=== PATIENT | female | born 1955 | race Caucasian/White ===

== ENCOUNTER 2018-10-01 19:04 | Emergency (ER) | payer OTHER ==
[~2018-10-01 19:04] MED LIST: ASCO-244 PO; CALC-852 PO; GLUC-198 PO; LUTE20TA PO; MULT-1335 PO; OMEG500C5 PO
--- NOTE | 2018-10-01 19:51 | ER Report ---
History and Physical Time Seen By MD: 19:40 Hx. of Stated Complaint: PT REPORTS FACIAL DROOP AND SLURRED SPEECH AT HOME. NIH NEGATIVE IN TRIAGE, VAN NEGATIVE, VSS HPI/ROS CHIEF COMPLAINT:? TIA HISTORY OF PRESENT ILLNESS: 63-year-old female with a history of sick sinus syndrome followed by cardiology. She is asymptomatic and has not required a pacemaker as of yet. Her resting heart rate can be as low as 35. Tonight while doing the dishes after dinner she had right facial droop and trouble speaking for approximately a minute or 2, her brought her to the emergency department. She was having trouble ambulating at home as well as coming into the ER. Her facial droop is resolved. Her speech is returned to normal. Patient is asymptomatic. She denies headache, nausea, vomiting, visual changes, chest pain. She does take medication for hyperlipidemia. REVIEW OF SYSTEMS: Respiratory: No cough, no dyspnea. Cardiovascular: No chest pain, no palpitations. Gastrointestinal: No vomiting, no abdominal pain. Musculoskeletal: No back pain. Allergies: Coded Allergies: codeine (Verified Adverse Reaction, Unknown, NAUSEA, 10/01/18) Home Meds Reported Medications Lutein (LUTEIN) 20 Mg Tablet, 20 MG PO QDAY 12/26/12 [place]-3 Fatty Acids (FISH OIL) 500 Mg Capsule.dr, 500 MG PO QDAY 12/26/12 Ascorbic Acid (VITAMIN C) 1,000 Mg Tablet.er, 1000 MG PO QDAY 12/26/12 Multivitamin With Minerals (MULTIPLE VITAMIN) 1 Each Tablet, 1 EACH PO QDAY 12/26/12 Glucosa Schmidt 2KCL/Chondroitin Schmidt (GLUCOSAMINE & CHONDROITIN CAP) 1 Each Capsule, 1 EACH PO QDAY, CAPSULE 12/26/12 Calcium Carbonate/Vitamin D3 (CALCIUM + VITAMIN D TABLET) 1 Each Tablet, 1 EACH PO QDAY 12/26/12 Past Medical/Surgical History Hyperlipidemia, sick sinus syndrome followed by cardiology, Dr. Onofre Reviewed Nurses Notes: Yes Old Medical Records Reviewed: Yes Constitutional Vital Sign - Last 24 Hours 10/01/18 10/01/18 10/01/18 10/01/18 19:05 19:15 19:30 19:45 Temp 98.3 Pulse 38 42 42 Resp 14 B/P (MAP) 149/70 126/70 (88) Pulse Ox 96 95 88 96 O2 Delivery Room Air 810/01/18 10/01/18 10/01/18 20:00 20:15 20:30 20:45 Pulse 44 32 34 B/P (MAP) 148/74 (98) 127/85 (99) Pulse Ox 98 97 95 10/01/18 10/01/18 21:00 21:12 B/P (MAP) 136/76 (96) 109/80 (90) Pulse Ox 98 Physical Exam General Appearance: The patient is alert, has no immediate need for airway protection and no current signs of toxicity. Vital signs stable, afebrile, pulse ox normal HEENT: Pupils equal and round no injection. PERRLA, EOMI, oropharynx without redness or exudate Respiratory: Chest is non tender, lungs are clear to auscultation. Cardiac: Irregular rate and rhythm, extremely bradycardic, no murmur[ ] Gastrointestinal: Abdomen is soft and non tender, no masses, bowel sounds normal. Musculoskeletal: Neck: Neck is supple and non tender. No bruits Extremities have full range of motion and are non tender. Skin: No rashes or lesions. Neuro: Alert and oriented 3, cranial nerves II through XII intact motor 5/5 shoer, sensory intact to light touch 4, cerebellum grossly intact DIFFERENTIAL DIAGNOSIS: After history and physical exam differential diagnosis was considered for weakness including but not limited to electrolyte abnormality, depression, anxiety, CVA, spinal cord abnormality, and infectious causes. Medical Decision Making Data Points Result Diagram: 10/01/18200910/01/182009 Laboratory Hematology Test 10/01/18 20:10 White Blood Count 7.2 k/uL (4.5-11.0) Red Blood Count 4.73 M/uL (4.17-5.56) Hemoglobin 15.2 g/dL (12.0-16.0) Hematocrit 44.1 % (34.0-47.0) Mean Corpuscular Volume 93.2 fL (80.0-96.0) Mean Corpuscular Hemoglobin 32.1 pg (26.0-33.0) Mean Corpuscular Hemoglobin Concent 34.4 g/dL (32.0-36.0) Red Cell Distribution Width 14.6 % (11.5-14.5) H Platelet Count 196 K/uL (150-450) Mean Platelet Volume 9.0 fL (7.2-11.1) Neutrophils (%) (Auto) 51.2 % (39.4-72.5) Lymphocytes (%) (Auto) 39.1 % (17.6-49.6) Monocytes (%) (Auto) 6.1 % (4.1-12.4) Eosinophils (%) (Auto) 2.5 % (0.4-6.7) Basophils (%) (Auto) 1.1 % (0.3-1.4) Nucleated RBC Relative Count (auto) 0.1 /100WBC Neutrophils # (Auto) 3.7 K/uL (2.0-7.4) Lymphocytes # (Auto) 2.8 K/uL (1.3-3.6) Monocytes # (Auto) 0.4 K/uL (0.3-1.0) Eosinophils # (Auto) 0.2 K/uL (0.0-0.5) Basophils # (Auto) 0.1 K/uL (0.0-0.1) Nucleated RBC Absolute Count (auto) 0.00 K/uL Chemistry Test 10/01/18 20:10 10/01/18 21:12 Sodium Level 139 mmol/L (137-145) Potassium Level 3.9 mmol/L (3.5-5.0) Chloride Level 102 mmol/L (98-107) Carbon Dioxide Level 27 mmol/L (22-31) Blood Urea Nitrogen 17 mg/dl (7-18) Creatinine 0.80 mg/dl (0.52-1.04) Glomerular Filtration Rate Calc > 60.0 Random Glucose 59 mg/dl (75-110) Calcium Level 9.7 mg/dl (8.4-10.2) Total Bilirubin 1.5 mg/dl (0.2-1.3) Aspartate Amino Transf (AST/SGOT) 46 U/L (0-35) Alanine Aminotransferase (ALT/SGPT) 46 U/L (0-56) Alkaline Phosphatase 57 U/L (0-126) Troponin I < 0.012 ng/ml B-Type Natriuretic Peptide 127 pg/ml (0-100) Total Protein 7.5 g/dl (6.3-8.2) Albumin 4.7 g/dl (3.5-5.0) Whole Blood Glucose 104 mg/DL (75-110) Coagulation Test 10/01/18 20:10 Prothrombin Time 13.0 seconds (12.0-14.4) Prothromb Time International Ratio 0.98 Activated Partial Thromboplast Time 28 seconds (23-35) Urinalysis Test 10/01/18 20:10 Urine Color Yellow Urine Clarity Clear Urine pH 6.0 pH (4.8-9.5) Urine Specific [place] 1.008 Urine Protein Negative mg/dL (NEGATIVE) Urine Glucose (UA) Negative mg/dL (NEGATIVE) Urine Ketones Negative mg/dL (NEGATIVE) Urine Blood Negative (NEGATIVE) Urine Nitrite Negative (NEGATIVE) Urine Bilirubin Negative (NEGATIVE) Urine Urobilinogen Negative mg/dL (0.2-1.9) Urine Leukocyte Esterase Small (NEGATIVE) Urine RBC 1 /HPF (0-2/HPF) Urine WBC 2 /HPF (0-5/HPF) Urine Squamous Epithelial Cells Many /LPF (</=FEW) Urine Bacteria Negative /HPF (NONE-FEW) Urine Mucus None /HPF (NONE-FEW) EKG/Imaging EKG Interpretation 12 lead EKG: Rhythm: Sinus rhythm with a rate of 46 bpm,? Sick sinus syndrome. There appeared to be junctional escape beats [place]: Left axis deviation QRS: normal ST segments:, No evidence of ischemia,, comparison to old altered monitor 01/2015 Imaging Results: CT scan of the head without contrast was obtained. The results of the study are no acute findings. The study was read by the radiologist. I viewed the images myself on the PACS system. ED Course/Re-evaluation Clinical Indication for ER IV: IV Access ED Course Patient was admitted to an examination room. H&P was done. The differential diagnoses was considered. On clinical examination, patient is a nonfocal neurologic examination. Her INH stroke scale is negative. Her symptoms have resolved spontaneously. Diagnostic evaluation is undertaken. Patient's EKG shows sick sinus syndrome with junctional bradycardia. It's likely unchanged from previous. Scan of her head is unremarkable. Her diagnostic studies are all unremarkable. She is a mild elevation of her BNP to 127. She is advised to start taking a baby aspirin daily. She is advised to follow-up with primary care for outpatient ultrasound of her carotids and echocardiogram. She also is advised to follow-up with her compensation/benefits specialist. Her irregular rhythm, a be putting her at risk for thromboembolic disease. Patient was noted to have hypoglycemia with a blood sugar of 59. After drinking cranberry juice. Her repeat fingerstick glucose is 104. Patient reports feeling better. Decision to Disposition Date: Oct 01, 2018 Decision to Disposition Time: 20:34 Depart Departure Latest Vital Signs Vital Signs Date Time Temp Pulse Resp B/P (MAP) Pulse Ox O2 Delivery O2 Flow Rate FiO2 10/01/18 21:12 109/80 (90) 10/01/18 21:00 98 10/01/18 20:45 34 10/01/18 19:05 98.3 14 Room Air Impression: Primary Impression: Hypoglycemia Additional Impressions: Hyperlipidemia Sick sinus syndrome TIA (transient ischemic attack) Condition: Improved Disposition: HOME OR SELF-CARE Referrals: TULIO CORRAL MD (PCP) Patient Instructions: Non-diabetic Hypoglycemia (ED), Transient Ischemic Attack (ED) Additional Instructions: Take an aspirin 81 mg per day Your blood glucose returned at 59. On your blood draw normal. Blood glucose should be 70-110 Follow-up with your primary care doctor. He will need an ultrasound of urine. Carotid arteries and your heart You likely will need follow-up with your compensation/benefits specialist for consideration of a pacemaker to provide you with a steady rhythm Problem Qualifiers Additional Impressions: Hyperlipidemia Hyperlipidemia type: unspecified Qualified Codes: E78.5 - Hyperlipidemia, unspecified HALEY LOPEZ DO Oct 01, 2018 19:51
--- NOTE | 2018-10-01 20:22 | EKG ---
FACILITY: [facility] - [place] PATIENT NAME: LISETH CARRINGTON : [id number] MR: [id number] V: [id number] EXAM DATE: ORDERING PHYSICIAN: HALEY LOPEZ TECHNOLOGIST: JAMAAL Test Reason : BRADYCARDIA TIA Blood Pressure : / mmHG Vent. Rate : 046 BPM Atrial Rate : 073 BPM P-R Int : 192 ms QRS Dur : 092 ms QT Int : 484 ms P-R-T Axes : 000 -30 031 degrees QTc Int : 423 ms Appears to be sinus bradycardia with apparent intermittent junctional complexes Left axis deviation Nonspecific ST and T wave abnormality Abnormal ECG No previous ECGs available Confirmed by JONATHAN RIDDLE ([id number]) on 10/01/2018 9:07:51 PM Referred By: Confirmed By:JONATHAN RIDDLE
--- NOTE | 2018-10-01 20:24 | RADIOLOGY IMAGING REPORT ---
FACILITY: [facility] - [place] PATIENT NAME: Veronica Romero : 1955 MR: [id number] V: [id number] EXAM DATE: ORDERING PHYSICIAN: HALEY LOPEZ TECHNOLOGIST: [place] [facility] [place] Veronica Romero : 1955 Visit/Account:[id number] Date of Sevice: 10/01/2018 EXAMINATION: CT head without IV contrast HISTORY: Altered mental status, confusion COMPARISON: None. TECHNIQUE: Contiguous axial images were obtained from the skull base to the vertex without intraven ous contrast. Sagittal and coronal reformatted images are also submitted. One of the following dose optimization techniques was utilized in the performance of this exam: Autom ated exposure control; adjustment of the mA and/or kV according to the patient's size; or use of an i terative reconstruction technique. Specific details can be referenced in the facility's radiology C T exam operational policy. FINDINGS: Brain volume: Normal. Ventricles: Normal. Acute ischemic changes: None. Hemorrhage: None. Masses/edema: None. Sarah-white: Negative. White matter: Small low-density change in the right centrum semiovale of doubtful clinical significa nce.. Vessels: Negative. Extra-axial: Negative. Calvarium/scalp: Negative. Skull base/visualized face: Negative. Visualized sinuses/orbits: Negative. IMPRESSION: Essentially unremarkable CT scan of the brain. Report Dictated By: YUSRA HUFFMAN at 10/01/2018 8:13 PM Report E-Signed By: YUSRA HUFFMAN at 10/01/2018 8:16 PM WSN:[id number]
[2018-10-01 20:37] LABS: PLATELET COUNT, AUTOMATED 196 K/uL (150-450)
[2018-10-01 20:53] LABS: INR 0.98
[2018-10-01 21:12] VITALS: BP 109/80
== END 2018-10-01 21:25 | disposition home or self-care (01) ==
LOC: ER 19:48
DX: E16.2 Hypoglycemia, unspecified (principal); E78.5 Hyperlipidemia, unspecified; I49.5 Sick sinus syndrome; G45.9 Transient cerebral ischemic attack, unspecified
CPT/HCPCS: 36416; 70450; 81001; 82040; 82247; 82310; 82374; 82435; 82565; 82947; 82948; 83880; 84075; 84132; 84155; 84295; 84450; 84460; 84484; 84520; 85025; 85610; 85730; 93005; 99284